=== PATIENT | male | born 1940 | race Caucasian/White ===

== ENCOUNTER 2016-06-15 12:10 | Inpatient (IN) | payer MEDICARE, MEDICAID ==
[~2016-06-15] VITALS: Ht 160 cm; Wt 78.8 kg
[2016-06-15] MEDS ORDERED: SOD CHLORIDE 0.9% 500 ML IV STA (15:04)
[2016-06-15] MEDS ORDERED: ASPIRIN 325 MG TAB PO STA (15:04)
[2016-06-15 15:19] LABS: ADD SCAN DIFF NO
[2016-06-15 15:24] LABS: BASOPHILS % 0.2 % (0.0-2.0); EOSINOPHILS # 0.1 10^3/ul (0.0-0.5); EOSINOPHILS % 0.6 % (0.0-7.0); HEMATOCRIT 41.9 % (42.0-52.0); HEMOGLOBIN 14.2 g/dl (14.0-18.0); LYMPHOCYTES # 3.6 10^3/ul (0.8-2.9); LYMPHOCYTES % 42.3 % (15.0-51.0); MEAN CORPUSCULAR HEMOGLOBIN 31.8 pg (29.0-33.0); MEAN CORPUSCULAR HGB CONC 33.9 g/dl (32.0-37.0); MEAN CORPUSCULAR VOLUME 93.9 fl (82.0-101.0); MEAN PLATELET VOLUME 9.8 fl (7.4-10.4); MONOCYTE # 0.5 10^3/ul (0.3-0.9); MONOCYTES % 5.3 % (0.0-11.0); NEUTROPHIL # 4.3 10^3/ul (1.6-7.5); NEUTROPHILS % 51.2 % (39.0-77.0); PLATELET COUNT 275 10^3/UL (140-415); RED BLOOD COUNT 4.46 10^6/ul (4.70-6.10); RED CELL DISTRIBUTION WIDTH 11.5 % (11.5-14.5); WHITE BLOOD COUNT 8.5 10^3/ul (4.8-10.8)
--- NOTE | 2016-06-15 15:30 | RADRPT ---
PROCEDURE: XR Chest. CLINICAL INDICATION: Possible stroke. TECHNIQUE: Single frontal view of the chest was obtained COMPARISON: None FINDINGS: The soft tissues are normal. There are osteophytes in the thoracic spine. The the heart is upper l imits of normal for size. The cardiomediastinal silhouette and hilar structures are normal. The pul monary vasculature is normal. There is a left-sided aorta with mild ectasia of the thoracic aorta. L ungs are clear. The costophrenic angles are normal. IMPRESSION: 1. Spondylosis of the thoracic spine. 2. Atherosclerosis with ectasia of the left-sided thoracic aorta. 3. No evidence of active cardiopulmonary disease. RPTAT:AAJJ Physician Sushma Date Time Electronically viewed and signed by Axel Rao Physician on 06/15/2016 15:30 /
--- NOTE | 2016-06-15 15:34 | RADRPT ---
PROCEDURE: CT Brain without contrast. CLINICAL INDICATION: Possible Stroke TECHNIQUE: A CT of the brain was performed on a GE [employer] 64-slice CT scanner utilizing axial imaging from the skull base through the vertex without IV contrast. Multiplanar reformatted images were made. Images were reviewed on a PACS workstation. The CTDIvol is 44.5 mGy and the DLP is 720 mGycm. COMPARISON: None FINDINGS: There is no intracranial hemorrhage, mass effect, or midline shift. No extra-axial fluid collection is seen. The ventricles and sulci are normal in size and configuration. The density of the brain is normal, and the rosenbaum white matter differentiation appears well-preserved. The visualized paranasal sinuses and osseous structures are grossly unremarkable. IMPRESSION: No evidence of acute intracranial pathology. No CT evidence for acute intracranial ischemia. If cl inical suspicion is high, consider MRI for further evaluation. Physician Solitario Date Time Electronically viewed and signed by Physician Solitario on 06/15/2016 15:34 ML/
[2016-06-15 15:35] LABS: ALBUMIN 4.3 g/dl (3.3-4.9); CHLORIDE 102 mmol/L (97-110); SODIUM 141 mmol/L (135-144)
[2016-06-15 15:36] LABS: POTASSIUM 3.9 mmol/L (3.5-5.1)
[2016-06-15 15:37] LABS: INR 0.85; PROTIME 11.6 Sec (12.2-14.2); PT RATIO 0.9
[2016-06-15 15:38] LABS: ALBUMIN/GLOBULIN RATIO 1.16; ALKALINE PHOSPHATASE 72 IU/L (42-121); ANION GAP 16 (8-16); ASPARTATE AMINO TRANSFERASE 20 IU/L (15-46); BILIRUBIN,INDIRECT 0.4 mg/dl (0-1.1); BILIRUBIN,TOTAL 0.4 mg/dl (0.2-1.3); BLOOD UREA NITROGEN 16 mg/dl (7-20); CARBON DIOXIDE 27 mmol/L (21-31); CREATININE 0.96 mg/dl (0.61-1.24); PARTIAL THROMBOPLASTIN TIME 28.6 Sec (25.0-35.0)
[2016-06-15 15:39] LABS: ALANINE AMINOTRANSFERASE 18 IU/L (13-69); CALCIUM 9.5 mg/dl (8.4-10.2); GLUCOSE 226 mg/dl (70-220)
[2016-06-15] MEDS ORDERED: METF850T PO (15:57)
[2016-06-15] MEDS ORDERED: TRAM-40 PO (16:00)
[2016-06-15 16:12] LABS: TROPONIN-I < 0.012 ng/ml (0.00-0.12)
[2016-06-15] MEDS ORDERED: IBUP200C PO (16:14)
[2016-06-15] MEDS ORDERED: TYL500 PO (16:15)
[2016-06-15] MEDS ORDERED: morphine 4 MG/ML VIAL IV STA (16:41)
[2016-06-15] MEDS ORDERED: ONDANSETRON 4 MG INJ IV STA ×2 (16:41→19:50)
--- NOTE | 2016-06-15 16:44 | RADRPT ---
PROCEDURE: CT Cervical Spine without contrast. CLINICAL INDICATION: Left arm numbness. TECHNIQUE: The study was performed on a multislice multidetector CT scanner. Spiral axial 1 mm im ages were obtained through the cervical spine and reformatted at 2.5 mm slice thickness without cont rast. 1 or more of the following dose reduction techniques were utilized: Automated exposure contr ol, adjustment of the mA and/or kV according to patient's size, iterative reconstruction technique. Coronal and sagittal reformations were obtained. The images were reviewed on a PACS workstation. RADIATION DOSE: CTDIvol: 22.3 mGyDLP: 559.3 mGy-cm COMPARISON: No prior studies are available for comparison. FINDINGS: There is trace retrolisthesis of C4-C5 and C5 on C6. There is ossification of the posterior longitu dinal ligament from the superior C4 end plate inferiorly to the superior C7 endplate. There is rhianna enital shortening of the cervical spine pedicles, with the spinal canal measuring a maximum 8-9 mm i n maximal diameter from C3-T1. There is ossification of the nuchal ligament, normal variant. The c raniocervical junction is intact. The vertebral body heights are maintained. There is no evidence of fracture or dislocation. There are diffuse anterior osteophytes with moderate narrowing of the i ntervertebral discs at C5-6 and C6-7 and mild disc-space narrowing at C4-5. There is a mild left co nvex scoliosis centered at C5. There is a no bone destruction or sclerosis. The paraspinal soft tiss ues are unremarkable. No significant paraspinal soft tissue swelling. There is mild atherosclerosis of the left carotid bulb/proximal ICA. There is a soft tissue density lesion beneath the hyoid bone, extending inferiorly to the level of the thyroid cartilage, measuring 1.9 x 2.2 cm (axial seri es image 110). There is mild scarring of the bilateral lung apices. C2-3: There is a 1-2 mm posterior disc/osteophyte complex. The thecal sac measures 7.8 mm midline A P diameter. There is mild bilateral facet hypertrophy and moderate left and mild right uncovertebra l joint spondylosis. There is severe left and moderate right neural foraminal narrowing. There is a bridging anterior osteophyte. C3-4: There is a broad-based 2 mm posterior disc/osteophyte complex. The thecal sac measures 6.1 mm midline AP diameter. There is mild bilateral facet hypertrophy and moderate bilateral uncovertebra l joint spondylosis. There is severe bilateral neural foraminal narrowing. C4-5: There is a 4-5 mm right paracentral disc/osteophyte complex. The thecal sac measures 6.9 mm i n midline AP diameter. There is moderate right and mild left facet intervertebral joint spondylosis . There is severe right and moderate left neural foraminal narrowing. C5-6: There is a 4 mm posterior disc/osteophyte complex. The thecal sac measures 5.5 mm midline AP diameter. There is mild bilateral facet hypertrophy and moderate right and mild left uncovertebral joint spondylosis. There is severe right and moderate left neural foraminal narrowing. C6-7: There is a 3-4 mm posterior disc/osteophyte complex. The thecal sac measures 5.9 mm midline AP diameter. There is mild bilateral facet hypertrophy and moderate right uncovertebral joint spond ylosis. There is severe right and moderate left neural foraminal narrowing. C7-T1: There is a 1-2 mm posterior disc/osteophyte complex. The thecal sac and neural foramina are patent. IMPRESSION: 1. No acute abnormality of the cervical spine. No evidence of fracture or dislocation. 2. 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 This results in severe spinal stenosi s at C3-4, C4-5, C5-6 and C6-7, worst at the C5-6 and C6-7 due to ossification of the posterior long itudinal ligament at these levels. 3. Multilevel facet and uncovertebral joint spondylosis with severe narrowing of the left C2-3, nitesh ateral C3-4, right C4-5, right C5-6 and right C6-7 foramina. Other mild to moderate foraminal narro wings as discussed above. 4. Benign, midline cystic appearing lesion extending from beneath the hyoid bone anterior to the th yroid cartilage. 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 MRI of the neck with and wit hout contrast is recommended for further evaluation. RPTAT: HGAS .Jerrod Lou MD, MD Date Time Electronically viewed and signed by .Jerrod Lou MD, MD on 06/15/2016 16:44 .S/
[2016-06-15] MEDS ORDERED: NICARDipine HCL 30 MG CAPSULE PO ONE (18:30)
[2016-06-15] MEDS ORDERED: SOD CHLORIDE 0.9% 1,000 ML IV SCH (19:32)
--- NOTE | 2016-06-15 19:38 | ERA ---
ER Documentation Chief Complaint Date/Time DATE: 06/15/16 TIME: 19:34 Chief Complaint cp x 3 days, back pain x 4 days, left arm numness 2 days, dizzy HPI This is a 76 show male complains of 3 days of some vague left chest pain is off and on with some pain in his left scapular region as well. The pain is also in the left trapezius. He said he had some complete arm paresthesias onset yesterday afternoon. He says his left arm feels tingly but he has no visual change no speech change no weakness in the extremities or face. No other paresthesias specifically no left face or left leg paresthesia. He says that it is not worse with movement he has no neck pain no trauma or fall no syncope ROS All systems reviewed and are negative except as per history of present illness. Medications Home Meds Reported Medications Acetaminophen* (Tylenol*) 500 Mg Tab, 500 MG PO Q4H Y for MILD PAIN LEVEL 1-3, TAB 06/15/16 Ibuprofen* (Ibuprofen*) 200 Mg Capsule, 600 MG PO Q6, CAP 06/15/16 Tramadol Hcl* (Ultram*) 50 Mg Tablet, 50 MG PO Q8, TAB Pt took twice only janet of dizziness 06/15/16 Metformin Hcl* (Metformin Hcl*) 850 Mg Tablet, 850 MG PO BID WITH MEALS, #30 TAB 06/15/16 Allergies Allergies: Coded Allergies: No Known Allergy (Unverified , 06/15/16) PMhx/Soc Medical and Surgical Hx: pt denies Medical Hx Hx Alcohol Use: No Hx Substance Use: No Hx Tobacco Use: No Smoking Status: Former smoker FmHx Family History: No coronary disease Physical Exam Vitals Vital Signs Date Time Temp Pulse Resp B/P Pulse Ox O2 Delivery O2 Flow Rate FiO2 06/15/16 18:16 83 18 185/110 100 Room Air 06/15/16 12:16 98.1 101 18 151/81 99 Physical Exam Const: Well-developed, well-nourished Head: Atraumatic, normocephalic Eyes: Normal Conjunctiva, PERRLA, EOMI, normal sclera, no nystagmus ENT: Normal External Ears, Nose and Mouth, moist mucus membranes. Neck: Full range of motion. No meningismus, no lymphadenopathy. Resp: Clear to auscultation bilaterally, no wheezing, rhonchi, rales Cardio: Regular rate and rhythm, no murmurs, S1 S2 present Abd: Soft, non tender x 4, non distended. Normal bowel sounds, no guarding or rebound, no pulsitile abdominal masses or bruits Skin: No petechiae or rashes, no ecchymosis , no maculopapular rash Back: No midline or flank tenderness Ext: No cyanosis, or edema, FROM x 4, normal inspection, neurovascularly intact x 4 Neur: Awake and alert, STR 5/5 x 4, sensation is intact except the left upper extremity has some mild paresthesias to the entire arm, no focal findings , cerebellum intact Psych: Normal Mood and Affect Result Diagram: 06/15/16 1510 06/15/16 1510 Results 24 hrs Laboratory Tests Test 06/15/16 15:10 White Blood Count 8.510^3/ul Red Blood Count 4.4610^6/ul Hemoglobin 14.2g/dl Hematocrit 41.9% Mean Corpuscular Volume 93.9fl Mean Corpuscular Hemoglobin 31.8pg Mean Corpuscular Hemoglobin Concent 33.9g/dl Red Cell Distribution Width 11.5% Platelet Count 83454^3/UL Mean Platelet Volume 9.8fl Neutrophils % 51.2% Lymphocytes % 42.3% Monocytes % 5.3% Eosinophils % 0.6% Basophils % 0.2% Nucleated Red Blood Cells % 0.0/100WBC Neutrophils # 4.310^3/ul Lymphocytes # 3.610^3/ul Monocytes # 0.510^3/ul Eosinophils # 0.110^3/ul Basophils # 0.010^3/ul Nucleated Red Blood Cells # 0.010^3/ul Prothrombin Time 11.6Sec Prothrombin Time Ratio 0.9 INR International Normalized Ratio 0.85 Activated Partial Thromboplast Time 28.6Sec Sodium Level 141mmol/L Potassium Level 3.9mmol/L Chloride Level 102mmol/L Carbon Dioxide Level 27mmol/L Anion Gap 16 Blood Urea Nitrogen 16mg/dl Creatinine 0.96mg/dl Glucose Level 226mg/dl Calcium Level 9.5mg/dl Total Bilirubin 0.4mg/dl Direct Bilirubin 0.00mg/dl Indirect Bilirubin 0.4mg/dl Aspartate Amino Transf (AST/SGOT) 20IU/L Alanine Aminotransferase (ALT/SGPT) 18IU/L Alkaline Phosphatase 72IU/L Troponin I < 0.012ng/ml Total Protein 8.0g/dl Albumin 4.3g/dl Globulin 3.70g/dl Albumin/Globulin Ratio 1.16 Current Medications Medications (Trade) Dose Ordered Sig/Ho Route PRN Reason Start Time Stop Time Status Last Admin Dose Admin Sodium Chloride (NS) 500 ml @ 500 mls/hr Q1H STAT IV 06/15/16 15:04 06/15/16 16:03 DC 06/15/16 15:35 Aspirin (Aspirin) 325 mg ONCE STAT PO 06/15/16 15:04 06/15/16 15:06 DC 06/15/16 15:50 Morphine Sulfate (morphine) 4 mg ONCE STAT IV 06/15/16 16:41 06/15/16 16:55 DC 06/15/16 17:03 Ondansetron HCl (Zofran Inj) 4 mg ONCE STAT IV 06/15/16 16:41 06/15/16 16:55 DC 06/15/16 17:03 Nicardipine HCl (Cardene) 30 mg ONCE ONCE PO 06/15/16 18:30 06/15/16 18:31 DC 06/15/16 19:04 Procedures/MDM PROCEDURE: CT Cervical Spine without contrast. CLINICAL INDICATION: Left arm numbness. TECHNIQUE: The study was performed on a multislice multidetector CT scanner. Spiral axial 1 mm images were obtained through the cervical spine and reformatted at 2.5 mm slice thickness without contrast. 1 or more of the following dose reduction techniques were utilized: Automated exposure control, adjustment of the mA and/or kV according to patient's size, iterative reconstruction technique. Coronal and sagittal reformations were obtained. The images were reviewed on a PACS workstation. RADIATION DOSE: CTDIvol: 22.3 mGy DLP: 559.3 mGy-cm COMPARISON: No prior studies are available for comparison. FINDINGS: There is trace retrolisthesis of C4-C5 and C5 on C6. There is ossification of the posterior longitudinal ligament from the superior C4 end plate inferiorly to the superior C7 endplate. 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 There is ossification of the nuchal ligament, normal variant. The craniocervical junction is intact. The vertebral body heights are maintained. There is no evidence of fracture or dislocation. There are diffuse anterior osteophytes with moderate narrowing of the intervertebral discs at C5-6 and C6-7 and mild disc-space narrowing at C4-5. There is a mild left convex scoliosis centered at C5. There is a no bone destruction or sclerosis. The paraspinal soft tissues are unremarkable. No significant paraspinal soft tissue swelling. There is mild atherosclerosis of the left carotid bulb/proximal ICA. There is a soft tissue density lesion beneath the hyoid bone, extending inferiorly to the level of the thyroid cartilage, measuring 1.9 x 2.2 cm (axial series image 110). There is mild scarring of the bilateral lung apices. C2-3: There is a 1-2 mm posterior disc/osteophyte complex. The thecal sac measures 7.8 mm midline AP diameter. There is mild bilateral facet hypertrophy and moderate left and mild right uncovertebral joint spondylosis. There is severe left and moderate right neural foraminal narrowing. There is a bridging anterior osteophyte. C3-4: There is a broad-based 2 mm posterior disc/osteophyte complex. The thecal sac measures 6.1 mm midline AP diameter. There is mild bilateral facet hypertrophy and moderate bilateral uncovertebral joint spondylosis. There is severe bilateral neural foraminal narrowing. C4-5: There is a 4-5 mm right paracentral disc/osteophyte complex. The thecal sac measures 6.9 mm in midline AP diameter. There is moderate right and mild left facet intervertebral joint spondylosis. There is severe right and moderate left neural foraminal narrowing. C5-6: There is a 4 mm posterior disc/osteophyte complex. The thecal sac measures 5.5 mm midline AP diameter. There is mild bilateral facet hypertrophy and moderate right and mild left uncovertebral joint spondylosis. There is severe right and moderate left neural foraminal narrowing. C6-7: There is a 3-4 mm posterior disc/osteophyte complex. The thecal sac measures 5.9 mm midline AP diameter. There is mild bilateral facet hypertrophy and moderate right uncovertebral joint spondylosis. There is severe right and moderate left neural foraminal narrowing. C7-T1: There is a 1-2 mm posterior disc/osteophyte complex. The thecal sac and neural foramina are patent. IMPRESSION: 1. No acute abnormality of the cervical spine. No evidence of fracture or dislocation. 2. 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 This results in severe spinal stenosis at C3-4, C4-5, C5-6 and C6-7, worst at the C5-6 and C6-7 due to ossification of the posterior longitudinal ligament at these levels. 3. Multilevel facet and uncovertebral joint spondylosis with severe narrowing of the left C2-3, bilateral C3-4, right C4-5, right C5-6 and right C6-7 foramina. Other mild to moderate foraminal narrowings as discussed above. 4. Benign, midline cystic appearing lesion extending from beneath the hyoid bone anterior to the thyroid cartilage. 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 MRI of the neck with and without contrast is recommended for further evaluation. RPTAT: HGAS .Jerrod Lou MD, MD Date Time Electronically viewed and signed by .Jerrod Lou MD, MD on 06/15/2016 16: 44 .S/ CC: PIEDAD BROWN DO PROCEDURE: CT Brain without contrast. CLINICAL INDICATION: Possible Stroke TECHNIQUE: A CT of the brain was performed on a [employer] 64-slice CT scanner utilizing axial imaging from the skull base through the vertex without IV contrast. Multiplanar reformatted images were made. Images were reviewed on a PACS workstation. The CTDIvol is 44.5 mGy and the DLP is 720 mGycm. COMPARISON: None FINDINGS: There is no intracranial hemorrhage, mass effect, or midline shift. No extra- axial fluid collection is seen. The ventricles and sulci are normal in size and configuration. The density of the brain is normal, and the rosenbaum white matter differentiation appears well-preserved. The visualized paranasal sinuses and osseous structures are grossly unremarkable. IMPRESSION: No evidence of acute intracranial pathology. No CT evidence for acute intracranial ischemia. If clinical suspicion is high, consider MRI for further evaluation. Livan Hart Physician Date Time Electronically viewed and signed by Livan Hart Physician on 06/15/2016 15 :34 ML/ CC: PIEDAD BROWN DO PROCEDURE: XR Chest. CLINICAL INDICATION: Possible stroke. TECHNIQUE: Single frontal view of the chest was obtained COMPARISON: None FINDINGS: The soft tissues are normal. There are osteophytes in the thoracic spine. The the heart is upper limits of normal for size. The cardiomediastinal silhouette and hilar structures are normal. The pulmonary vasculature is normal. There is a left-sided aorta with mild ectasia of the thoracic aorta. Lungs are clear. The costophrenic angles are normal. IMPRESSION: 1. Spondylosis of the thoracic spine. 2. Atherosclerosis with ectasia of the left-sided thoracic aorta. 3. No evidence of active cardiopulmonary disease. RPTAT:AAJJ Axel Rao, Physician Date Time Electronically viewed and signed by Axel Rao, Physician on 06/15/2016 15:30 JM/ CC: PIEDAD BROWN DO No absolute gross reason why he has left numbness from the CT scan of the brain and neck. The need to get an MRI of his brain and cervical spine to rule out any other pathology. He possibly had a small stroke as his blood pressures been 205/105 here. We will admit for observation and stroke workup Departure Diagnosis: Primary Impression: Arm paresthesia, left Condition: Stable PIEDAD BROWN DO Jun 15, 2016 19:38
--- NOTE | 2016-06-15 19:42 | HP ---
Date/Time of Note Date/Time of Note DATE: 06/15/16 TIME: 19:42 Assessment/Plan VTE Prophylaxis VTE Prophylaxis Intervention: other (Lovenox) Assessment/Plan Assessment/Plan 1) Acute Pain due to Muscle Spasm, Left Rhomboids and Left Triceps Muscles - Admit to Observation on Telemetry - Bed Rest - Muscle Relaxant 2) Chest Pain, Left Upper Chest Wall, Reproducible with Palpation - Will Rule him out, just to be cautious - Serial Cardiac Enzymes. - EKG in AM 3) Paresthesias, Left Upper Extremity, Hand in particular. CT with multi- level spondylosis but no obvious spinal cord impingement - Re-evaluate in AM after treatment with Muscle Relaxant - Carotid Duplex - Consider MRI Brain and C-Spine 4) Elevated Blood Pressure without history of Hypertension - prn BP medication overnight. If High BP persists in AM then Start daily medication - Low Salt Diet 5) Dizziness - Bedrest for now. - Urinalysis - Ambulate with assist when ready. 6) Hyperglycemia in a Diabetic Patient already on Metformin - HgbA1c - add on to current labs. Patient's Diabetes may be uncontrolled which could be a reason for paresthesias, unusual chest pains and dizziness. - Diabetic Diet - AccuChek AC and HS HPI/ROS Admit Date/Time Admit Date/Time 06/16/16 1932 Hx of Present Illness Chief Complaint cp x 3 days, back pain x 4 days, left arm numbness 2 days, dizzy HPI This is a 76 show male complains of 3 days of some vague left chest pain is off and on with some pain in his left scapular region as well. The pain is also in the left trapezius. He said he had some complete arm paresthesias onset yesterday afternoon. He says his left arm feels tingly but he has no visual change no speech change no weakness in the extremities or face. No other paresthesias specifically no left face or left leg paresthesia. He says that it is not worse with movement he has no neck pain no trauma or fall no syncope. No nausea, vomiting, fever or chills. ER Course per ER Physician: No absolute gross reason why he has left numbness from the CT scan of the brain and neck. The need to get an MRI of his brain and cervical spine to rule out any other pathology. He possibly had a small stroke as his blood pressures been 205/105 here. We will admit for observation and stroke workup ROS General: Admits: Denies: Fever, Chills, Poor Appetite, Generalized Body Aches Eyes: Admits: Denies: Blurry Vision, Double Vision HENT: Admits: Denies: Ear Pain/Pressure, Tinnitus, Runny/Stuffy Nose, Sore Throat Cardiovascular: Admits: Chest Pain, Palpitations Denies: Leg Swelling Pulmonary: Admits: Denies: Cough, Wheeze, Shortness of Breath Gastrointestinal: Admits: Denies: Abdominal Pain, Nausea, Vomiting, Diarrhea, Blood in Stool, Black-Colored Stool Urogenital: Admits: Urinary Frequency ever since prostate surgery Denies: Burning with Urination, Blood in Urine, Nocturia Musculoskeletal: Admits: Left arm pain, Left upper back pain, Left upper chest pain Denies: Joint Pain, Joint Swelling, Muscle Pain Neurological: Admits: Dizziness, Numbness, Tingling Denies: Headache, Shooting Pains Integumentary: Admits: Denies: Rash, Itch Endocrine: Admits: Denies: Excessive Thirst, Excessive Hunger, Intolerant to Cold , Intolerant to Heat Psychiatric: Admits: Denies: Anxiety, Depression PMH/Family/Social Past Medical History Prostate Cancer; Sciatica, Left; Urinary Frequency since Prostate Cancer Surgery ; Diabetes (based on the fact that he takes Metformin and his Random Glucose is over 200) Medical History: no pertinent history Past Surgical History Prostate Cancer Resection; Tonsillectomy Family History Significant Family History: other (No CAD) Social History Alcohol Use: occasionally (Glass of wine several days per week) Smoking Status: Former smoker (No smoking for over 45 years. Never heavy.) Drug Use: none Exam/Review of Systems Vital Signs Vitals Vital Signs Date Time Temp Pulse Resp B/P Pulse Ox O2 Delivery O2 Flow Rate FiO2 06/15/16 18:16 83 18 185/110 100 Room Air 06/15/16 12:16 98.1 Exam Exam General: WD/WN [place] male, alert and oriented, in mild distress due to his left arm apin and paresthesias Eyes: Sclera White, EOMI HENT: Normocephalic/Atraumatic, External Ears/Nose Normal, Moist Mucus Membranes Neck: Currently wearing a plastic neck brace for comfort, Trachea is seen to be midline through the C-Collar Cardiovascular: Normal Rate, Normal Rhythm, Normal S1 and S2, No Murmur, No Extra Sounds Pulmonary: Clear to Auscultation Bilaterally, Normal Respiratory Effort, No Rales, Rhonchi or Wheezes Gastrointestinal: Normoactive Bowel Sounds, Soft, Non-Tender/Non-Distended, No Hepatosplenomegaly Appreciated, No Pulsatile Masses Urogenital: Deferred Musculoskeletal: Normal Muscle Bulk and Tone. I can make patient's back pain worse by palpating along the medial margin of his left scapula. There is a palpable muscle spasm in the body of the left triceps, and palpation of the left upper chest wall reproduces his pain as well. Bilateral UE/LE strength +5/ 5 and equal bilaterally Neurological: CN II - XII Intact, Non-Focal, Speech Normal Integumentary: Normal Moisture and Temperature, Good Turgor, No Jaundice, No Rash Psychiatric: Appropriate Mood and Affect, Good Eye Contact Labs Result Diagram: 06/15/16 1510 06/15/16 1510 Medications Medications Home Meds Reported Medications Acetaminophen* (Tylenol*) 500 Mg Tab, 500 MG PO Q4H Y for MILD PAIN LEVEL 1-3, TAB 06/15/16 Ibuprofen* (Ibuprofen*) 200 Mg Capsule, 600 MG PO Q6, CAP 06/15/16 Tramadol Hcl* (Ultram*) 50 Mg Tablet, 50 MG PO Q8, TAB Pt took twice only janet of dizziness 06/15/16 Metformin Hcl* (Metformin Hcl*) 850 Mg Tablet, 850 MG PO BID WITH MEALS, #30 TAB 06/15/16 Current Medications Medications (Trade) Dose Ordered Sig/Ho Route PRN Reason Start Time Stop Time Status Last Admin Dose Admin Sodium Chloride (NS) 500 ml @ 500 mls/hr Q1H STAT IV 06/15/16 15:04 06/15/16 16:03 DC 06/15/16 15:35 Aspirin (Aspirin) 325 mg ONCE STAT PO 06/15/16 15:04 06/15/16 15:06 DC 06/15/16 15:50 Morphine Sulfate (morphine) 4 mg ONCE STAT IV 06/15/16 16:41 06/15/16 16:55 DC 06/15/16 17:03 Ondansetron HCl (Zofran Inj) 4 mg ONCE STAT IV 3/25/17 16:41 06/15/16 16:55 DC 06/15/16 17:03 Nicardipine HCl (Cardene) 30 mg ONCE ONCE PO 06/15/16 18:30 06/15/16 18:31 DC 06/15/16 19:04 Procedures Procedures Laboratory Tests Test 06/15/16 15:10 White Blood Count 8.510^3/ul Red Blood Count 4.4610^6/ul Hemoglobin 14.2g/dl Hematocrit 41.9% Mean Corpuscular Volume 93.9fl Mean Corpuscular Hemoglobin 31.8pg Mean Corpuscular Hemoglobin Concent 33.9g/dl Red Cell Distribution Width 11.5% Platelet Count 74231^3/UL Mean Platelet Volume 9.8fl Neutrophils % 51.2% Lymphocytes % 42.3% Monocytes % 5.3% Eosinophils % 0.6% Basophils % 0.2% Nucleated Red Blood Cells % 0.0/100WBC Neutrophils # 4.310^3/ul Lymphocytes # 3.610^3/ul Monocytes # 0.510^3/ul Eosinophils # 0.110^3/ul Basophils # 0.010^3/ul Nucleated Red Blood Cells # 0.010^3/ul Prothrombin Time 11.6Sec Prothrombin Time Ratio 0.9 INR International Normalized Ratio 0.85 Activated Partial Thromboplast Time 28.6Sec Sodium Level 141mmol/L Potassium Level 3.9mmol/L Chloride Level 102mmol/L Carbon Dioxide Level 27mmol/L Anion Gap 16 Blood Urea Nitrogen 16mg/dl Creatinine 0.96mg/dl Glucose Level 226mg/dl Calcium Level 9.5mg/dl Total Bilirubin 0.4mg/dl Direct Bilirubin 0.00mg/dl Indirect Bilirubin 0.4mg/dl Aspartate Amino Transf (AST/SGOT) 20IU/L Alanine Aminotransferase (ALT/SGPT) 18IU/L Alkaline Phosphatase 72IU/L Troponin I < 0.012ng/ml Total Protein 8.0g/dl Albumin 4.3g/dl Globulin 3.70g/dl Albumin/Globulin Ratio 1.16 RADIOLOGY: PROCEDURE: CT Cervical Spine without contrast. CLINICAL INDICATION: Left arm numbness. COMPARISON: No prior studies are available for comparison. IMPRESSION: 1. No acute abnormality of the cervical spine. No evidence of fracture or dislocation. 2. 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 This results in severe spinal stenosis at C3-4, C4-5, C5-6 and C6-7, worst at the C5-6 and C6-7 due to ossification of the posterior longitudinal ligament at these levels. 3. Multilevel facet and uncovertebral joint spondylosis with severe narrowing of the left C2-3, bilateral C3-4, right C4-5, right C5-6 and right C6-7 foramina. Other mild to moderate foraminal narrowings as discussed above. 4. Benign, midline cystic appearing lesion extending from beneath the hyoid bone anterior to the thyroid cartilage. 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 MRI of the neck with and without contrast is recommended for further evaluation. PROCEDURE: CT Brain without contrast. CLINICAL INDICATION: Possible Stroke COMPARISON: None IMPRESSION: No evidence of acute intracranial pathology. No CT evidence for acute intracranial ischemia. If clinical suspicion is high, consider MRI for further evaluation. PROCEDURE: XR Chest. CLINICAL INDICATION: Possible stroke. TECHNIQUE: Single frontal view of the chest was obtained COMPARISON: None FINDINGS: The soft tissues are normal. There are osteophytes in the thoracic spine. The the heart is upper limits of normal for size. The cardiomediastinal silhouette and hilar structures are normal. The pulmonary vasculature is normal. There is a left-sided aorta with mild ectasia of the thoracic aorta. Lungs are clear. The costophrenic angles are normal. IMPRESSION: 1. Spondylosis of the thoracic spine. 2. Atherosclerosis with ectasia of the left-sided thoracic aorta. 3. No evidence of active cardiopulmonary disease. SWAPNIL THAYER DO Jun 15, 2016 19:42 a left-sided aorta with mild ectasia of the thoracic aorta. Lungs are clear. The costophrenic angles are normal. IMPRESSION: 1. Spondylosis of the thoracic spine. 2. Atherosclerosis with ectasia of the left-sided thoracic aorta. 3. No evidence of active cardiopulmonary disease. SWAPNIL THAYER DO Jun 15, 2016 19:42 SWAPNIL THAYER DO Jun 15, 2016 19:42
[2016-06-15] MEDS ORDERED: HYDROmorphONE 1 MG/ML SYG IV STA (19:50)
[2016-06-15] MEDS ORDERED: ONDANSETRON 4 MG INJ IV PRN (20:00)
[2016-06-15] MEDS ORDERED: morphine 2 MG INJ IV PRN (20:00)
[2016-06-15] MEDS ORDERED: LORAZEPAM 2 MG INJ IV PRN (20:00)
[2016-06-15] MEDS ORDERED: NITROGLYCERIN (SL) 0.4 MG TAB SL PRN (20:00)
[2016-06-15] MEDS ORDERED: DIAZEPAM 5 MG TAB PO ONE (20:00)
[2016-06-15] MEDS ORDERED: ACETAMINOPHEN 325 MG TAB PO PRN ×2 (20:00)
[2016-06-15] MEDS ORDERED: METOCLOPRAMIDE 10 MG INJ IV PRN (20:00)
[2016-06-15] MEDS ORDERED: NACL 0.9% 3 ML SYG IV SCH (20:00)
--- NOTE | 2016-06-15 21:49 | RADRPT ---
PROCEDURE: US Carotids. CLINICAL INDICATION: Dizziness TECHNIQUE: Multiple sonographic of the carotid bifurcation region and vertebral arteries were obta ined utilizing rosenbaum scale, duplex and color-flow imaging. COMPARISON: None available FINDINGS: RIGHT CAROTID MEASUREMENTS: PSV (cm/s)EDV (cm/s) Common Carotid [id number] Internal Carotid Artery - [id number] Internal Carotid Artery - [id number] Internal Carotid Artery - [id number] External Carotid Artery-83 Vertebral Artery-58 PSVR (ICA/CCA)1.0 LEFT CAROTID MEASUREMENTS: PSV (cm/s)EDV (cm/s) Common Carotid [id number] Internal Carotid Artery - [id number] Internal Carotid Artery - [id number] Internal Carotid Artery - [id number] External Carotid Artery-84 Vertebral Artery-51 PSVR (ICA/CCA)0.7 Minimal diffuse atheromatous disease is demonstrated There is antegrade flow within the vertebral arteries bilaterally. RPTAT:HJJR IMPRESSION: 1. No evidence for hemodynamically significant carotid artery stenosis. 2. Antegrade flow in the vertebral arteries bilaterally. Physician Alayna Date Time Electronically viewed and signed by Physician Alayna on 06/15/2016 21:49 /
[2016-06-15 21:58] VITALS: PULSE 80
[2016-06-15 22:07] VITALS: BP 151/58; RESP 20
[2016-06-15] MEDS: FAMOTIDINE 20 MG TAB PO SCH (22:28)
[2016-06-15] MEDS: ENOXAPARIN 40 MG/0.4 ML SYG SC SCH (22:30)
[2016-06-15] MEDS: HYDROCODONE/APAP (5/325) TAB PO PRN (22:48)
[2016-06-15 22:59] LABS: CREATINE KINASE 62 IU/L (23-200)
[2016-06-15 23:00] VITALS: BP 151/77; PULSE 77; RESP 20; Ht 160 cm; Wt 78.8 kg
[2016-06-15 23:09] LABS: CK-MB 0.58 ng/ml (0.0-2.4)
[2016-06-15 23:12] LABS: TROPONIN-I < 0.012 ng/ml (0.00-0.12)
[2016-06-16] VITALS (14 sets, daily range): BP systolic 100–153; BP diastolic 60–79; PULSE 60–80; RESP 18–20
[2016-06-16 04:00] LABS: ADD SCAN DIFF NO
[2016-06-16 04:06] LABS: BASOPHILS % 0.1 % (0.0-2.0); EOSINOPHILS # 0.1 10^3/ul (0.0-0.5); EOSINOPHILS % 1.2 % (0.0-7.0); HEMOGLOBIN 12.9 g/dl (14.0-18.0); LYMPHOCYTES # 2.6 10^3/ul (0.8-2.9); LYMPHOCYTES % 37.7 % (15.0-51.0); MEAN CORPUSCULAR HEMOGLOBIN 31.5 pg (29.0-33.0); MEAN CORPUSCULAR HGB CONC 33.1 g/dl (32.0-37.0); MEAN CORPUSCULAR VOLUME 95.1 fl (82.0-101.0); MONOCYTE # 0.4 10^3/ul (0.3-0.9); MONOCYTES % 6.5 % (0.0-11.0); NEUTROPHIL # 3.7 10^3/ul (1.6-7.5); NEUTROPHILS % 54.2 % (39.0-77.0); PLATELET COUNT 259 10^3/UL (140-415); RED CELL DISTRIBUTION WIDTH 11.5 % (11.5-14.5); WHITE BLOOD COUNT 6.8 10^3/ul (4.8-10.8)
[2016-06-16 04:19] LABS: POTASSIUM 3.8 mmol/L (3.5-5.1)
[2016-06-16 04:20] LABS: CREATINE KINASE 62 IU/L (23-200)
[2016-06-16 04:21] LABS: CREATININE 0.83 mg/dl (0.61-1.24)
[2016-06-16 04:22] LABS: CALCIUM 8.8 mg/dl (8.4-10.2)
[2016-06-16 04:53] LABS: THYROID STIMULATING HORMONE 1.61 MIU/L (0.465-4.680)
[2016-06-16 04:59] LABS: CK-MB 0.51 ng/ml (0.0-2.4); TROPONIN-I < 0.012 ng/ml (0.00-0.12)
[2016-06-16] MEDS: HYDROCODONE/APAP (5/325) TAB PO PRN ×2 (08:53→14:59)
[2016-06-16] MEDS: FAMOTIDINE 20 MG TAB PO SCH ×2 (08:53→20:58)
[2016-06-16] MEDS: ENOXAPARIN 40 MG/0.4 ML SYG SC SCH (08:54)
[2016-06-16] MEDS ORDERED: LOSA50TA6 PO (09:44)
--- NOTE | 2016-06-16 10:06 | RADRPT ---
Echocardiogram Report Patient Name: IESHA ALONSO Gender: Male Date: 1940 Study Date: 16-Jun-2016 Manager Transition: [facility] Location: 6-B Ref. Physician: SWAPNIL THAYER Quality: Technically Difficult Study Procedures: Transthoracic echocardiogram with complete 2D, M-Mode, and doppler examination. Indications: Chest Pain. Dizziness. ELEVATED BP. 2D/M Mode Doppler Measurement Value Normal Ranges Measurement Value Normal Ranges LVIDd 2D 4.2 3.5 - 5.6 cm AV Peak Jonny 1.2 m/sec LVIDs 2D 2.9 2.1 - 4.1 cm AV Peak PG 6.0 mmHg FS 2D 31.7 % AI Peak PG 46.0 mmHg LVPWd 2D 1.0 0.6 - 1.1 cm AI Peak Jonny 3.4 m/sec IVSd 2D 1.2 0.6 - 1.1 cm AI PHT 1268.0 msec IVS/LVPW 2D 1.2 LVOT Peak Jonny 0.7 m/sec AoR Diam 2D 2.0 2.0 - 3.7 cm LVOT Peak PG 2.0 mmHg LA/Ao 2D 2 0 - 1 MV E Peak Jonny 0.5 m/sec EDV 2D 74.1 cm3 MV A Peak Jonny 0.9 m/sec ESV 2D 23.6 cm3 MV E/A 0.5 LA Dimen 2D 3.3 2.3 - 4.0 cm MV Decel Time 250 msec MV E/A 0.5 MR Peak PG 22.0 mmHg MR Peak Jonny 2.4 m/sec Findings Left Ventricle: Normal left ventricular systolic function. Normal left ventricular cavity size. Left ventricular wall thickness upper limits of normal. Ejection fraction is visually estimated at 65 %. Tissue Doppler/Mitral Doppler indices are consistent with impaired relaxation (Stage I diastolic dysfunction). Right Ventricle: Normal right ventricular size. Normal right ventricular systolic function. Left Atrium: The left atrium is normal in size. Right Atrium: The right atrium is normal in size. Mitral Valve: Mild mitral leaflet calcification. Mild mitral valve regurgitation. Aortic Valve: Mild to moderate aortic valve regurgitation. Tricuspid Valve: Tricuspid valve not well visualized. There is trace tricuspid regurgitation. Pulmonic Valve: There is trace pulmonic regurgitation. Pericardium: Normal pericardium with no significant pericardial effusion. Aorta: Normal aortic root. IVC: Normal size and normal respiratory collapse consistent with normal right atrial pressure. Conclusions 1.Normal left ventricular systolic function. Normal left ventricular cavity size. Left ventricular wall thickness upper limits of normal. Ejection fraction is visually estimated at 65 %. Tissue Doppler/Mitral Doppler indices are consistent with impaired relaxation (Stage I diastolic dysfunction). 2.Mild to moderate aortic valve regurgitation. Electronically Signed By: Oliver Snyder 16-Jun-2016 10:05:13 -[id number] Patient Name: IESHA ALONSO Study Date: 16-Jun-2016 [id number]
[2016-06-16] MEDS ORDERED: GLUCAGON 1 MG INJ IM PRN (10:30)
[2016-06-16] MEDS ORDERED: hydrALAzine 20 MG INJ IV PRN (10:30)
[2016-06-16] MEDS ORDERED: DEXTROSE 50% 50 ML SYRINGE IV PRN ×2 (10:30)
[2016-06-16] MEDS ORDERED: GLUCOSE GEL 15 GRAM TUBE BUCCAL PRN (10:30)
[2016-06-16] MEDS ORDERED: GLUCOSE GEL 15 GRAM TUBE PO PRN ×2 (10:30)
--- NOTE | 2016-06-16 10:49 | CONS ---
DATE OF ADMISSION: 06/15/2016 DATE OF CONSULTATION: 06/16/2016 REASON FOR CONSULTATION: Chest pain. HISTORY OF PRESENT ILLNESS: The patient presents with 3 days of severe 10/10 back pain which radiat es to his chest and down the outer aspect of his left arm with associated numbness. It is worse whi le lying flat on his back, not worse with exertion. He has difficulty finding a comfortable positio n. It is reproducible on palpation. The patient reports that he has never had a cardiac problem. He was recently diagnosed with diabetes mellitus. Currently he remains uncomfortable with 10/10 dave k pain. PAST MEDICAL HISTORY: Prostate cancer, sciatic, diabetes. FAMILY HISTORY: Noncontributory. SOCIAL HISTORY: Denies current smoking, quit many years ago. REVIEW OF SYSTEMS: Otherwise negative, except as per HPI. PHYSICAL EXAMINATION: GENERAL: He is in mild distress. VITAL SIGNS: Temperature 98.1, pulse 66, blood pressure 144/65, oxygen saturation 98%. LUNGS: Clear. CARDIAC: Regular rate and rhythm. ABDOMEN: Soft, nontender, nondistended. EXTREMITIES: No clubbing, cyanosis, or edema. LABORATORY RESULTS: White count 6.8, hematocrit 39. Troponin is negative x2. Cholesterol 201. So dium 137, potassium 3.8. DIAGNOSTIC DATA: EKG shows sinus rhythm, nonspecific ST changes. Echocardiogram shows normal ejection fraction. ASSESSMENT: Extremely atypical chest pain, not concerning for cardiac origin given the constant and severe nature, lack of elevation in enzymes and reproducibility on exam. Appears to be musculoskel etal or neurally related. Continue workup as per primary team. Thank you very much for this consultation. Dictated By: ERIC MICHAEL/PETERSON Conf#: [id number] DID#: [id number]
--- NOTE | 2016-06-16 11:26 | PN ---
DATE: 06/16/2016 SUBJECTIVE DATA: Complains of left arm pain and back pain. Complains of some chest discomfort. Troponins are so far negative. OBJECTIVE DATA: VITAL SIGNS: Temperature 98.1, pulse is 66, respiratory rate 18, blood pressure 144/64, oxygen saturation 98% on room air. GENERAL: This is a well-built, well-nourished 76-year-old male patient lying in bed in no apparent distress. HEENT: Head normocephalic and atraumatic. Eyes: Anicteric sclerae. Conjunctivae clear. ENT: Nasal septum is midline. Oral mucosa is moist. NECK: Supple. No JVD noticed. RESPIRATORY: Bilaterally clear to auscultation. No adventitious breath sounds heard. No use of accessory muscles of respiration. CARDIAC: Regular rate and rhythm. S1 and S2 heard. ABDOMEN: Soft, nontender, and nondistended. Bowel sounds positive in all 4 quadrants. GENITOURINARY: Deferred. EXTREMITIES: No cyanosis, no clubbing, no edema. Peripheral pulses are palpable. NEUROLOGIC: The patient is awake, alert, and oriented. Cranial nerves are grossly intact. LABORATORY AND DIAGNOSTIC DATA: WBC 6.8, hemoglobin 12.9, hematocrit 39.0, platelet count 259. Sodium 137, potassium 3.9, chloride 103, carbon dioxide 26 , anion gap 13, BUN 40, creatinine 0.8, glucose 494, calcium 8.8. Hemoglobin A1c is 7.4. Triglycerides 56, total cholesterol 201, LDL 140, AST 50. ASSESSMENT AND PLAN: 1. Chest pain. To rule out acute coronary syndrome, 3 sets of troponins negative. 2D echocardiogram showed preserved left ventricular ejection fraction with stage I diastolic dysfunction. Cardiology evaluating the patient. The patient will be provided with pain control. 2. Essential hypertension. The patient will be maintained on antihypertensives. The patient will also be started on p.r.n. antihypertensives for systolic blood pressure readings greater than 160 mmHg. 3. Type 2 diabetes. The patient will be continued on sliding scale along with Lantus insulin and basal insulin. 4. Dyslipidemia. A low cholesterol diet will be reinforced. 5. Left upper extremity paraesthesia. Cervical spine CT showing multilevel moderate spondylosis but no evidence of any cord compression. Continue pain management. Neurology consult will be obtained. 6. Fluid, electrolytes, and nutrition. Carbohydrate controlled low cholesterol diet. 7. DVT prophylaxis. Bilateral sequential compressive devices. 8. Gastrointestinal prophylaxis. Histamine 2 receptor blockers. PLAN: Continue pain management. Await further cardiology input. Call neurology consult. Case discussed with Dr. Donaldson. MARY DONALDSON MD, AM/PETERSON Conf#: [id number] DID#: [id number] MTDD
[2016-06-16] MEDS: INSULIN ASPART [NOVOLOG] 3 ML PEN SC SCH ×5 (12:08→21:02)
[2016-06-16] MEDS: traMADol 50 MG TAB PO SCH ×2 (14:00→21:44)
--- NOTE | 2016-06-16 17:46 | CONS ---
DATE OF ADMISSION: 06/15/2016 DATE OF CONSULTATION: REFERRING PHYSICIAN: Dr. Sky. Thank you for asking me to see the patient with you. HISTORY OF PRESENT ILLNESS: The patient is a 76-year-old male who was admitted to the hospital with left upper extremity pain and weakness associated with muscle spasm. The patient was admitted to [facility] for more evaluation and treatment. The patient has a past medical history of diabetes, uri nary tract infection, low backache, prostatic cancer. PAST SURGICAL HISTORY: In the form of prostate cancer resection, tonsillectomy. PHYSICAL EXAMINATION: GENERAL: Today, the patient is alert, awake, oriented to time, place, and person. Normal speech an d normal language. CRANIAL NERVES: Cranial nerve II: Pupils equal on both sides, reactive to light. Cranial nerves I II, IV, and : Extraocular muscles intact. No nystagmus. Cranial nerve V: Equal sensation to fa ce. Cranial nerve VII: Symmetrical face. Cranial nerve VIII: Decreased hearing bilaterally. [employer] nial nerves IX and X: Elevates palate. Cranial nerve XI: Elevates shoulder 5/5. Cranial nerve XI I: Elevates tongue. MOTOR: Left upper extremity is 4/5 for abduction. Sensation decreased on the left side for light t ouch and temperature. COORDINATION: [id number] test intact. HEART: Regular rate and rhythm. LUNGS: Equal breath sounds. ABDOMEN: Soft, relaxed, nondistended. No tenderness. ASSESSMENT AND PLAN: 1. The patient is a 76 years old with neck pain that radiates to the left upper extremity consisten t with underlying cervical radiculopathy. We will follow up the patient with electromyelogram as we ll as nerve conduction study for more evaluation and treatment. We will start the patient on Soma 3 50 mg 3 times a day and see how the patient responds from that as well as will increase his Neuronti n to 300 mg 3 times a day. We will follow up the patient with cervical MRI and neurosurgery consult . 2. Paresthesia probably secondary to #1, in which we will evaluate the patient after the nerve cond uction study and Neurontin. We will follow up the patient with pain management as needed. 3. The patient has a history of hypertension ____ diabetes with a possibility of dyslipidemia. Fol low up the patient with lipid panel. Maximize his statin to avoid stroke risk factor with the possi bility of underlying transient ischemic attack. Give the patient Aspirin 81 mg once a day. 4. Dizzy spell, probably secondary to transient ischemic attack. The patient was given aspirin 81 mg for stroke prophylaxis and counseled the patient about the importance to control his blood sugar and blood pressure to avoid any new onset of stroke in the future and to keep the patient under deep venous thrombosis prophylaxis in the form of Lovenox. Again, thank you for asking me to see the patient with you. Dictated By: EDWARD RODRIGUEZ/PETERSON Conf#: [id number] DID#: [id number]
[2016-06-16] MEDS: CARISOPRODOL 350 MG TAB PO SCH (20:59)
[2016-06-16] MEDS: INSULIN GLARGINE [LANtus] 3 ML PEN SC SCH (21:01)
[2016-06-17] VITALS (10 sets, daily range): BP systolic 118–146; BP diastolic 61–76; PULSE 60–71; RESP 15–20
[2016-06-17] MEDS: ACCU-CHEK XX SCH (02:00)
[2016-06-17] MEDS: traMADol 50 MG TAB PO SCH ×3 (06:07→20:13)
[2016-06-17 07:34] LABS: ADD SCAN DIFF NO
[2016-06-17 07:41] LABS: BASOPHILS % 0.5 % (0.0-2.0); EOSINOPHILS # 0.2 10^3/ul (0.0-0.5); EOSINOPHILS % 2.6 % (0.0-7.0); HEMATOCRIT 38.2 % (42.0-52.0); HEMOGLOBIN 12.9 g/dl (14.0-18.0); LYMPHOCYTES % 48.5 % (15.0-51.0); MEAN CORPUSCULAR HEMOGLOBIN 31.9 pg (29.0-33.0); MEAN CORPUSCULAR HGB CONC 33.8 g/dl (32.0-37.0); MEAN CORPUSCULAR VOLUME 94.3 fl (82.0-101.0); MONOCYTE # 0.4 10^3/ul (0.3-0.9); NEUTROPHIL # 2.6 10^3/ul (1.6-7.5); NEUTROPHILS % 42.2 % (39.0-77.0); PLATELET COUNT 250 10^3/UL (140-415); RED BLOOD COUNT 4.05 10^6/ul (4.70-6.10); RED CELL DISTRIBUTION WIDTH 11.5 % (11.5-14.5); WHITE BLOOD COUNT 6.1 10^3/ul (4.8-10.8)
[2016-06-17] MEDS: INSULIN ASPART [NOVOLOG] 3 ML PEN SC SCH ×7 (07:55→20:20)
[2016-06-17 08:05] LABS: MAGNESIUM 1.9 mg/dl (1.7-2.5); PHOSPHORUS 4.4 mg/dl (2.5-4.9); POTASSIUM 4.1 mmol/L (3.5-5.1)
[2016-06-17 08:08] LABS: CREATININE 1.02 mg/dl (0.61-1.24); TROPONIN-I < 0.012 ng/ml (0.00-0.12)
[2016-06-17] MEDS: FAMOTIDINE 20 MG TAB PO SCH ×2 (09:33→20:13)
[2016-06-17] MEDS: LOSARTAN 50 MG TAB PO SCH (09:33)
[2016-06-17] MEDS: CARISOPRODOL 350 MG TAB PO SCH ×3 (09:39→20:13)
[2016-06-17] MEDS: ENOXAPARIN 40 MG/0.4 ML SYG SC SCH (09:45)
--- NOTE | 2016-06-17 16:16 | PN ---
Date/Time of Note Date/Time of Note DATE: 06/17/16 TIME: 16:13 Assessment/Plan VTE Prophylaxis VTE Prophylaxis Intervention: SCD's Lines/Catheters IV Catheter Type (from Nrs): Saline Lock Urinary Cath still in place: No (USES URINAL) Assessment/Plan Chief Complaint/Hosp Course Assessment and plan 1. Chest pain. Serial troponin negative. Roll Scale Worker following. With preserved ejection fraction per echocardiogram. Continue optimization with cardiovascular medications 2. Reported left upper extremity paresthesia. Cervical spine CT did show multilevel moderate spondylosis. No evidence of cord compression. Neurologist following. Awaiting follow-up MRI of the neck 3. Type 2 diabetes. Continue insulin regimen 4. Dyslipidemia. On the follow-up that showed diet 5. Essential hypertension. Continue on antihypertensives and adjust as needed DVT prophylaxis: SCDs GERD prophylaxis: H2 jagdeep Disposition and plan: Awaiting MRI of the neck. Discharge when cleared by consultants Discussed plan of care with Dr. Bustillo Problems: Subjective 24 Hr Interval Summary Free Text/Dictation Still reports having neck pain. Also reports having pain on palpation of left upper extremity. No reported paresthesia Exam/Review of Systems Vital Signs Vitals Vital Signs Date Time Temp Pulse Resp B/P Pulse Ox O2 Delivery O2 Flow Rate FiO2 06/17/16 15:33 97.7 73 20 133/69 97 06/16/16 22:40 Room Air Intake and Output 06/16/16 06/16/16 06/17/16 14:59 22:59 06:59 Intake Total 500 ml 700 ml Balance 500 ml 700 ml Exam General: No acute signs or symptoms of distress Eyes: pupils equal round, Anicteric sclera Neck: Supple nontender, no JVD Cardiac: S1, S2 auscultated, regular rhythm and rate Pulmonary: No coarse rhonchi or breathing auscultated GI: Abdomen soft nontender nondistended, bowel sounds active Extremities: No edema bilateral lower extremities Skin: Clean dry and intact Neurologic: Alert to person place and time and situation Results Result Diagram: 06/17/1615 06/17/16 0615 Results 24 hrs Laboratory Tests Test 06/16/16 17:23 06/16/16 20:04 06/17/16 00:50 06/17/16 06:15 Bedside Glucose 150 184 137 White Blood Count 6.1 Red Blood Count 4.05 L Hemoglobin 12.9 L Hematocrit 38.2 L Mean Corpuscular Volume 94.3 Mean Corpuscular Hemoglobin 31.9 Mean Corpuscular Hemoglobin Concent 33.8 Red Cell Distribution Width 11.5 Platelet Count 250 Mean Platelet Volume 10.0 Neutrophils % 42.2 Lymphocytes % 48.5 Monocytes % 6.0 Eosinophils % 2.6 Basophils % 0.5 Nucleated Red Blood Cells % 0.0 Neutrophils # 2.6 Lymphocytes # 3.0 H Monocytes # 0.4 Eosinophils # 0.2 Basophils # 0.0 Nucleated Red Blood Cells # 0.0 Sodium Level 137 Potassium Level 4.1 Chloride Level 103 Carbon Dioxide Level 27 Anion Gap 11 Blood Urea Nitrogen 21 H Creatinine 1.02 Glucose Level 118 # Calcium Level 9.0 Phosphorus Level 4.4 Magnesium Level 1.9 Troponin I < 0.012 Test 06/17/16 08:21 06/17/16 12:28 Bedside Glucose 121 64 L Medications Medications Current Medications Lorazepam (Ativan) 0.25 mg Q6H PRN IV ANXIETY; Start 06/15/16 at 20:00 Metoclopramide HCl (Reglan) 10 mg Q6H PRN IV NAUSEA AND/OR VOMITING; Start at 20:00 Nitroglycerin (Nitroglycerin (Sl Tab) 0.4 Mg) 1 tab Q5M PRN SL CHEST PAIN; Start 06/15/16 at 20:00 Acetaminophen (Tylenol Tab) 650 mg Q6H PRN PO PAIN LEVEL 1-3 OR FEVER; Start at 20:00 Acetaminophen/ Hydrocodone Bitart (Amberg (5/325)) 1 tab Q6H PRN PO PAIN LEVEL 4 -6 Last administered on 06/16/16 14:59; Admin Dose 1 TAB; Start 06/15/16 at 20: 00 Morphine Sulfate (morphine) 2 mg Q4H PRN IV PAIN LEVEL 7-10; Start 06/15/16 at 20:00 Famotidine (Pepcid) 20 mg Q12 PO Last administered on 06/17/16 09:33; Admin Dose 20 MG; Start 06/15/16 at 21:00 Enoxaparin Sodium (Lovenox) 40 mg DAILY SC Last administered on 06/17/16 09:45 ; Admin Dose 40 MG; Start 06/15/16 at 20:00 Losartan Potassium (Cozaar) 50 mg DAILY PO Last administered on 06/17/16 09:33 ; Admin Dose 50 MG; Start 06/17/16 at 09:00 Tramadol HCl (Ultram) 50 mg Q8 PO Last administered on 06/17/16 06:07; Admin Dose 50 MG; Start 06/16/16 at 14:00 Hydralazine HCl (Apresoline) 10 mg Q6H PRN IV SBP>160; Start 06/16/16 at 10:30 Insulin Glargine (Lantus) 8 unit DAILY@20 SC Last administered on 06/16/16 21: 01; Admin Dose 8 UNIT; Start 06/16/16 at 20:00 Diagnostic Test (Pha) (Accu-Chek) 1 ea 02 XX ; Start 06/17/16 at 02:00 Miscellaneous Information 1 ea NOTE XX ; Start 06/16/16 at 10:30 Glucose (Glutose) 15 gm Q15M PRN PO DECREASED GLUCOSE; Start 06/16/16 at 10:30 Glucose (Glutose) 22.5 gm Q15M PRN PO DECREASED GLUCOSE; Start 06/16/16 at 10: 30 Dextrose (D50w Syringe) 25 ml Q15M PRN IV DECREASED GLUCOSE; Start 06/16/16 at 10:30 Dextrose (D50w Syringe) 50 ml Q15M PRN IV DECREASED GLUCOSE; Start 06/16/16 at 10:30 Glucagon (Glucagen) 1 mg Q15M PRN IM DECREASED GLUCOSE; Start 06/16/16 at 10:30 Glucose (Glutose) 15 gm Q15M PRN BUCCAL DECREASED GLUCOSE; Start 06/16/16 at 10 :30 Carisoprodol (Soma) 350 mg TID PO Last administered on 06/17/16 13:10; Admin Dose 350 MG; Start 06/16/16 at 21:00 Aspirin (Halfprin) 81 mg DAILY PO ; Start 06/18/16 at 09:00 YVES STERN Jun 17, 2016 16:16
--- NOTE | 2016-06-17 18:19 | SP ---
DATE OF PROCEDURE: 06/17/2016 REFERRING PHYSICIAN: SWAPNIL THAYER MD. Dr. Thayer: Thank you for asking me to see the patient with you. HISTORY OF PRESENT ILLNESS: The patient is a 76-year-old male admitted to the hospital with upper e xtremity pain and weakness associated with muscle spasms. MEDICATIONS: The patient current medications include: 1. Cozaar 50 mg once a day. 2. Soma 350 mg 3 times a day. 3. Lantus 8 units. 4. ____ 50 mg. 5. Lorazepam 0.5 mg every 6 hours. 6. ____ as needed. 7. Durham 1 tablet every 6 hours as needed. 8. Morphine sulfate 2 mg every 12 hours. PHYSICAL EXAM: GENERAL: On exam today, the patient is alert, awake, following simple commands. CRANIAL NERVES: Cranial nerve II: Pupils equal on both sides, reactive to light. Cranial nerves I II, IV, and : Extraocular muscles intact. Cranial nerve V: Equal sensation to face. Cranial ne rve VII: Symmetrical face. Cranial nerve VIII: Decreased hearing bilaterally. Cranial nerves IX, X: Elevates palate. Cranial nerve XI: Elevates shoulder 5/5. Cranial nerve XII: With straight tongue. MOTOR: Decreased right hand head paper tester, 4+/5. Sensation decreased for glove and sock area for light touc h and temperature. COORDINATION: [id number] test intact. HEART: Regular rate and rhythm. LUNGS: Equal breath sounds. ABDOMEN: Soft, relaxed, nondistended. No tenderness. ASSESSMENT AND PLAN 1. The patient is a 76-year-old male with underlying cervical radiculopathy. We will start the pat ient on pain management in the form of Durham and will follow up the patient with nerve conduction st udy and electromyogram as an outpatient. 2. History of ____. 3. The patient with Soma 350 mg 3 times a day, which the patient feels better with that. 4. History of diabetes and hypertension. 5. Keep the patient under stroke prophylaxis and give him aspirin 81 mg to avoid stroke. Again, thank you for asking me to see the patient with you. Dictated By: EDWARD FRANCO MD NA/NTS Conf#: [id number] DID#: [id number]
[2016-06-17] MEDS: HYDROCODONE/APAP (5/325) TAB PO PRN (20:14)
[2016-06-17] MEDS: INSULIN GLARGINE [LANtus] 3 ML PEN SC SCH (20:19)
[2016-06-18] VITALS (8 sets, daily range): BP systolic 104–136; BP diastolic 56–71; PULSE 66–83; RESP 15–20
[2016-06-18] MEDS: ACCU-CHEK XX SCH (02:00)
[2016-06-18] MEDS: traMADol 50 MG TAB PO SCH ×2 (05:47→13:58)
[2016-06-18] MEDS: INSULIN ASPART [NOVOLOG] 3 ML PEN SC SCH ×6 (07:55→16:45)
[2016-06-18] MEDS: ENOXAPARIN 40 MG/0.4 ML SYG SC SCH (08:04)
[2016-06-18] MEDS: CARISOPRODOL 350 MG TAB PO SCH ×2 (08:08→12:49)
[2016-06-18] MEDS: FAMOTIDINE 20 MG TAB PO SCH (08:09)
[2016-06-18] MEDS: LOSARTAN 50 MG TAB PO SCH (08:09)
[2016-06-18] MEDS ORDERED: ASPIRIN (EC) 81 MG TAB PO SCH (09:00)
[2016-06-18] MEDS ORDERED: CARI350T29 PO (10:37)
[2016-06-18] MEDS ORDERED: HYDR-3498 PO (10:37)
[2016-06-18] MEDS ORDERED: ASPI-664 PO (10:37)
--- NOTE | 2016-06-18 10:39 | PDOCDIS ---
Discharge Instructions DIAGNOSIS Discharge Diagnosis: 1. cervical radiculopathy 2. diabetes 3. hypertension CONDITION Patient Condition: Stable HOME CARE INSTRUCTIONS: Diet Instructions: Low Fat /CholesterolSpecial Diet: carbohydrate controlled FOLLOW UP/APPOINTMENTS Appointments 1. Follow up with Dr. Eliceo Sanon on 06/20/16 YVES STERN Jun 18, 2016 10:38
--- NOTE | 2016-06-19 08:44 | CONS ---
DATE OF ADMISSION: 06/15/2016 DATE OF CONSULTATION: REFERRING PHYSICIAN: Epifanio Renner MD Thank you for asking me to see the patient. HISTORY OF PRESENT ILLNESS: The patient is a 76-year-old male with neck pain, radiculopathy, dizzy spells, hypertension, diabetes in which the patient admitted for bilateral upper extremity weakness associated with tingling and numbness in which we ____ the patient about her status. CURRENT MEDICATIONS UPON ADMISSION: Include: 1. Aspirin 81 mg. 2. Cozaar 50 mg once a day. 3. Soma 350 mg two times a day. 4. Lantus 8 units once a day. 5. Ultram 50 mg twice a day. 6. NovoLog as needed. 7. Lorazepam 0.25 mg every 6 hours as needed. 8. Metoclopramide as needed. 9. Nitroglycerin as needed. 10. Morphine sulfate 2 mg every 4 hours as needed. PHYSICAL EXAMINATION: GENERAL: Today the patient is alert, awake, oriented, following simple commands. CRANIAL NERVES: Cranial nerve II: Pupils equal both sides, reactive. Cranial nerves III, IV and V I: Extraocular muscles intact. Cranial nerve V: Equal sensation to face. ____ Cranial nerve VIII : Equal hearing bilaterally. Cranial nerves IX, X: Elevates palate. Cranial nerve XI: Elevates shoulder 5/5. Cranial nerve XII: Straight tongue. MOTOR: Decreased right hand tier over, 4+/5. Sensation decreased for glove and sock area for light touc h and temperature. COORDINATION: Ljhrme-la-[id number] test intact. HEART: Regular rate and rhythm. LUNGS: Equal breath sounds. ABDOMEN: Soft, relaxed, nondistended. No tenderness. ASSESSMENT AND PLAN 1. The patient is 76 years old, underlying cervical radiculopathy. Will continue the patient on No rco and follow up the patient with nerve conduction study and electromyogram for more evaluation and treatment. 2. ____. The patient on Soma 350 mg 3 times a day and see how the patient responds to that. 3. History of diabetes. Follow up the patient's hemoglobin A1c, maximize his diet to avoid any inc rease of his blood sugar. 4. Paresthesia. Probably secondary to the diabetes. Follow up the patient with Neurontin. 5. History of hypertension. Keep the blood pressure at level of 140 over 90s, avoid any risk facto r of stroke. 6. Give the patient aspirin 81 mg for stroke prophylaxis. Again, thank you for asking me to see the patient with you. Dictated By: EDWARD RODRIGUEZ/PETERSON Conf#: [id number] DID#: [id number]
--- NOTE | 2016-06-24 10:28 | RADRPT ---
PROCEDURE: MR Cervical Spine with and without contrast. CLINICAL INDICATION: Neck pain. Paresthesias. TECHNIQUE: Multiplanar multisequence MRI of the cervical spine was performed before and following t he intravenous administration of 10 cc of Magnevist. COMPARISON: There are no similar studies submitted for comparison. FINDINGS: There is reversal of the cervical lordosis suggesting muscle spasm. The vertebral body heights are maintained. There is normal alignment. There is a 6 mm degenerative cyst within the C2 vertebral body. There is no destructive osseous lesion.There is no abnormal bone marrow edema. There is disk desiccation from C2-C3 to C6-C7. The spinal cord is normal in caliber. There is bilateral T2 intramedullary hyperintensity at the upp er C4 level most compatible with myelomalacia. There is no abnormal spinal cord enhancement. There i s congenital spinal canal stenosis. C2-C3 : There is mild disk space narrowing. There is 1 mm circumferential disk osteophyte complex w ith mild spinal canal stenosis. There is mild bilateral facet arthropathy and bilateral uncovertebr al hypertrophy causing moderate to severe right and moderate left foraminal stenosis. This affects the exiting right C3 nerve root. mild disk space narrowing. C4-C5 : There is mild to moderate disk space narrowing. There is a 2 mm broad-based disk osteophyte complex left subarticular component mildly indenting the spinal cord with mild to moderate spinal c anal stenosis. There is mild bilateral facet arthropathy and bilateral uncovertebral hypertrophy ca using moderate to severe right with moderate left foraminal stenosis. This affects the exiting righ t C4 nerve root. C5-C6 : There is moderate disk space narrowing. There is a 6 mm right subarticular disk osteophyte protrusion impinging the spinal cord with severe spinal canal stenosis. There is moderate bilateral facet arthropathy and bilateral uncovertebral hypertrophy causing severe right with moderate severe left foraminal stenosis. This affects the exiting bilateral C6 nerve roots. C6-C7 : There is mild disk space narrowing. There is a 5 mm right subarticular disk osteophyte prot rusion impinging the spinal cord with severe spinal canal stenosis. There is moderate bilateral fac et arthropathy and bilateral uncovertebral hypertrophy causing moderate to severe bilateral foramina l stenosis. This affects the exiting bilateral C7 nerve roots. C7-T1 : There is a 1 mm circumferential disk osteophyte complex with a 3 mm left foraminal disk prot rusion with mild spinal canal stenosis. There is mild bilateral facet arthropathy and bilateral unc overtebral hypertrophy causing moderate left with mild right foraminal stenosis. The paravertebral musculature are within normal limits. There is apparent 1.5 cm left thyroid nodule . IMPRESSION: 1. Congenital spinal canal stenosis. 2. Multilevel bilateral foraminal stenosis affecting the exiting right C3, right C4, bilateral C6, and bilateral C7 nerve roots as detailed above. 3. Multilevel spinal canal stenosis with spinal cord impingement/compression at C5-C6 and C6-C7 wit h severe spinal canal stenosis. There is no spinal cord edema at these levels. 4. Focal myelomalacia at the upper C4 level. 5. No abnormal bone marrow edema. 6. No abnormal spinal cord enhancement. 7. Reversal of the cervical lordosis suggesting muscle spasm. 8. There is a 1.5 cm left thyroid nodule. Ultrasound of the thyroid is recommended as well as correl ation with serum chemistries. Tissue sampling may be performed given size as clinically warranted. Further findings as detailed above. RPTAT: PP .Fermin Isaac MD, Date Time Electronically viewed and signed by .Fermin Isaac MD, on 06/24/2016 10:28 .F/
== END 2016-06-18 18:20 | disposition home or self-care (01) | DRG 552 ==
LOC: E/R 12:10 → TEL 19:34
PROVIDERS: ADMIT Family Medicine; ATTEND Family Medicine
DX: M47.22 Other spondylosis with radiculopathy, cervical region (principal); E11.65 Type 2 diabetes mellitus with hyperglycemia; I10 Essential (primary) hypertension; R07.9 Chest pain, unspecified; Z87.891 Personal history of nicotine dependence; M62.838 Other muscle spasm; R03.0 Elevated blood-pressure reading, without diagnosis of hypertension; R42 Dizziness and giddiness; Z85.46 Personal history of malignant neoplasm of prostate
CPT/HCPCS: 36415; 70450; 71010; 72125; 72156; 80048; 80053; 80061; 82550; 82553; 82652; 82962; 83036; 83735; 84100; 84443; 84484; 85025; 85610; 85730; 92610; 93005; 93306; 93880; 96374; 96375; 96376; 97162; J1170; J1650; J1815; J2405; J7030; J7040

== ENCOUNTER 2016-10-29 13:46 | Inpatient (IN) | END 2016-11-01 15:10 | disposition home health service (06) | DRG 556 | DX: M25.512 Pain in left shoulder (principal); E11.9 Type 2 diabetes mellitus without complications; M48.02 Spinal stenosis, cervical region; E78.5 Hyperlipidemia, unspecified; M47.892 Other spondylosis, cervical region; G57.90 Unspecified mononeuropathy of unspecified lower limb; R07.89 Other chest pain; Z85.46 Personal history of malignant neoplasm of prostate; Z90.79 Acquired absence of other genital organ(s); Z79.82 Long term (current) use of aspirin ==